=== PATIENT | female | born 2000 | race Caucasian/White ===

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

== ENCOUNTER 2020-07-28 19:54 | Emergency (ER) | payer OTHER ==
[~2020-07-28] VITALS: Ht 162.6 cm; Wt 64.4 kg
[2020-07-28 20:00] VITALS: BP 129/90
--- NOTE | 2020-07-28 20:00 | NUR ---
TO BED AMBULATORY
--- NOTE | 2020-07-28 20:15 | NUR ---
20 Y/O FEMALE PRESENTS TO ER WITH C/O VOMITING X 3HRS. 6/10 PAIN "PRESSURE IN FOREHEAD" ONLY. ALSO C/O OF SORE THROAT. DENIES EATING ANYTHING OUT OF THE ORDINARY, DENIES INJURY, NAUSEA, DIARRHEA, FEVER, SOB, COUGH. DENIES ANY KNOWN EXPOSURE TO COVID, OR SICK HOUSEHOLD MEMBERS. VSS, R/R EQUAL, AND UNLABORED. LMP: 07/27/20. PT STATES " I HAVE YEARLY VOMITING EPISODES". STATES LAST VOMIT HERE IN ER BATHROOM AT 2020. SIDE RAIL X1, BED IN LOW POSITION, WILL CONTINUE TO MONITOR. NKDA ALLERGIC: COCKROACHES PMH: COLLAGEN VASCULAR DISEASE
[2020-07-28] MEDS ORDERED: ONDANSETRON 4 MG/2 ML VIAL IVP ONE (20:55)
[2020-07-28 21:28] LABS: ALBUMIN 4.4 g/dL (3.4-5.0); ANION GAP 13.9 (8-16); BASOPHILS % (AUTO) 0.2 % (0.0-2.0); CARBON DIOXIDE 24.9 mmol/L (21-32); CREATININE 0.8 mg/dL (0.6-1.3); EOSINOPHILS % (AUTO) 0.1 % (0.0-4.0); HEMATOCRIT 37.3 % (36-48); HEMOGLOBIN 12.5 g/dL (12.0-16.0); LYMPHOCYTES # (AUTO) 1.4 K/uL (2.5-16.5); LYMPHOCYTES % (AUTO) 11.5 % (20.5-51.1); MEAN CORPUSCULAR HEMOGLOBIN 29 pg (27-31); MEAN CORPUSCULAR HGB CONC 34 g/dL (33-37); MEAN CORPUSCULAR VOLUME 87.4 fL (80-94); MONOCYTES # (AUTO) 0.4 K/uL (0.8-1.0); NEUTROPHILS # (AUTO) 10.4 K/uL (1.8-7.7); NEUTROPHILS % (AUTO) 85.2 % (42.2-75.2); PLATELET COUNT (AUTO) 274 K/uL (140-450); POTASSIUM 3.8 mmol/L (3.5-5.1); RED BLOOD CELL COUNT(AUTO) 4.27 MIL/uL (4.20-5.40); RED CELL DISTRIBUTION WIDTH 13.6 % (11.6-13.7); TOTAL BILIRUBIN 0.7 mg/dL (0.0-1.0); WHITE BLOOD COUNT (AUTO) 12.2 K/uL (4.5-11.0)
[2020-07-28] MEDS ORDERED: ONDA4ODT2 PO (21:40)
--- NOTE | 2020-07-28 21:40 | NUR ---
PO CHALLENGE STARTED. PT GIVEN APPLE JUICE
--- NOTE | 2020-07-28 21:57 | NUR ---
PO CHALLENGE COMPLETE. PT STATES SHE FEELS "OK". DOESN'T FEEL THE URGE TO VOMIT.
[2020-07-28 22:07] VITALS: BP 129/90
== END 2020-07-28 22:00 | disposition home or self-care (01) ==
LOC: MED 19:54
DX: R11.2 Nausea with vomiting, unspecified (principal); E86.0 Dehydration
CPT/HCPCS: 36415; 80053; 81002; 81025; 83690; 85025; 96374; 99283; J2405

== ENCOUNTER 2020-07-28 22:37 | Emergency (ER) | payer OTHER ==
[~2020-07-28] VITALS: Ht 162.6 cm; Wt 64.4 kg
[~2020-07-28 22:37] MED LIST: ONDA4ODT2 PO
[2020-07-28 22:43] VITALS: BP 155/85
--- NOTE | 2020-07-28 22:43 | NUR ---
TO BED VIA WHEELCHAIR
--- NOTE | 2020-07-28 23:16 | NUR ---
PATIENT 20 Y.O. BIB SELF FOR C/O CONTINUED NAUSEA AND VOMITING. A&OX4. PATIENT REPORTS "I WAS JUST HERE, BUT MY MEDICATION WASN'T FILLED AND IM STILL NAUSEOUS AND VOMITING." BOWEL SOUNDS ACTIVE X 4 QUADRATS. LAST BM 07/28/20. ABDOMEN IS FLAT, SOFT, NONTENDER. SEE COMPLETE ASSESSMENT FOR FURTHER DETAILS. MED HX: DENIES ALLERGIES: NKA
--- NOTE | 2020-07-28 23:20 | NUR ---
ERMD AT BEDSIDE ASSESSING PATIENT.
[2020-07-28] MEDS ORDERED: PROCHLORPERAZINE 10 MG/2 ML VIAL IVP ONE (23:25)
[2020-07-28] MEDS ORDERED: diphenhydrAMINE 50 MG/ML VIAL IVP ONE (23:25)
[2020-07-28] MEDS ORDERED: KETOROLAC 15 MG/ML VIAL IVP ONE (23:25)
[2020-07-28] MEDS ORDERED: NACL 0.9% 1,000 ML IV ONE (23:25)
[2020-07-29 00:59] VITALS: BP 124/81
--- NOTE | 2020-07-29 00:59 | NUR ---
Patient discharged with v/s stable. Written and verbal after care instructions given and explained. Patient verbalized understanding. Ambulatory with steady gait. All questions addressed prior to discharge. Advised to follow up with PMD.
== END 2020-07-29 00:59 | disposition home or self-care (01) ==
LOC: MED 22:37
DX: R11.2 Nausea with vomiting, unspecified (principal); E86.0 Dehydration; R51.9 Headache, unspecified; Z79.899 Other long term (current) drug therapy
CPT/HCPCS: 96361; 96374; 96375; 99284; J0780; J1200; J1885; J7030

== ENCOUNTER 2021-09-23 18:37 | Emergency (ER) | payer OTHER ==
[~2021-09-23] VITALS: Ht 160 cm; Wt 67.6 kg
[2021-09-23 18:41] VITALS: BP 133/87
--- NOTE | 2021-09-23 19:36 | NUR ---
PT IN RR FOR URINE COLLECTION.
--- NOTE | 2021-09-23 19:37 | NUR ---
URINE COLLECTED. PT IS HAVING LABS DRAWN.
--- NOTE | 2021-09-23 19:42 | NUR ---
PT BACK IN LOBBY.
[2021-09-23 19:52] LABS: BASOPHILS % (AUTO) 0.2 % (0.0-2.0); EOSINOPHILS % (AUTO) 0.1 % (0.0-4.0); HEMATOCRIT 38.7 % (36-48); HEMOGLOBIN 12.9 g/dL (12.0-16.0); LYMPHOCYTES # (AUTO) 1.5 K/uL (2.5-16.5); LYMPHOCYTES % (AUTO) 11.9 % (20.5-51.1); MEAN CORPUSCULAR HEMOGLOBIN 29 pg (27-31); MEAN CORPUSCULAR HGB CONC 33 g/dL (33-37); MEAN CORPUSCULAR VOLUME 86.9 fL (80-94); MONOCYTES # (AUTO) 0.5 K/uL (0.8-1.0); NEUTROPHILS # (AUTO) 10.4 K/uL (1.8-7.7); NEUTROPHILS % (AUTO) 83.8 % (42.2-75.2); PLATELET COUNT (AUTO) 305 K/uL (140-450); RED BLOOD CELL COUNT(AUTO) 4.45 MIL/uL (4.20-5.40); RED CELL DISTRIBUTION WIDTH 13.1 % (11.6-13.7); WHITE BLOOD COUNT (AUTO) 12.4 K/uL (4.8-10.8)
[2021-09-23 20:06] LABS: ANION GAP 11.9 (8-16); CARBON DIOXIDE 27.4 mmol/L (21-32); CREATININE 0.7 mg/dL (0.6-1.3); POTASSIUM 4.3 mmol/L (3.5-5.1)
[2021-09-23 20:13] LABS: ALBUMIN 4.1 g/dL (3.4-5.0); TOTAL BILIRUBIN 0.5 mg/dL (0.0-1.0)
--- NOTE | 2021-09-23 21:13 | NUR ---
TO BED 11 AMBULATORY.
[2021-09-23 22:02] VITALS: BP 117/80
--- NOTE | 2021-09-23 22:03 | NUR ---
pt reports ongoing nausea, no vomiting at this time, ongoing headache 8/10 pressure to temporal non rad constant since 1400 today. pt denies any cough, fevers/chills, abdominal pain. ermd made aware. pmh: denies allergies:denies
[2021-09-23] MEDS ORDERED: METOCLOPRAMIDE 10 MG/2 ML INJ VIAL IM ONE (22:10)
[2021-09-23] MEDS ORDERED: METO-486 PO (22:46)
[2021-09-23] MEDS ORDERED: ALUMINUM HYD/MAG/SIMETHICONE 30 ML UDC PO ONE (22:55)
--- NOTE | 2021-09-23 23:18 | NUR ---
Pt report given to [facility]. Transfer of care at this time.
--- NOTE | 2021-09-23 23:26 | NUR ---
RECEIVED REPORT FROM [facility] [employer] REPRESENTATIVE NURSE FOR CONTINUITY OF CARE, ROUNDS DONE PT IN BED ASLEEP, WILL RECHECK IN 10 MINUTES FOR PO CHALLENGE.
--- NOTE | 2021-09-23 23:54 | NUR ---
GAVE SMALL APPLE JUICE FOR THE PO CHALLENGE. WILL MONITOR.
--- NOTE | 2021-09-24 00:43 | NUR ---
PT PASSES PO CHALLENGE. PT DISCAHRGED TO HOME WITH SCRIPTS SENT TO PHARMACY. PT VERBELIZED UNDERSTANSDING OF D/C INSTRUCTIONS. PT AMBULATED OUT OF THE LOBBY IN A STEADY GAIT NO C/O VOICED AT THIS TIME.
== END 2021-09-24 00:43 | disposition home or self-care (01) ==
LOC: MED 18:37
DX: R51.9 Headache, unspecified (principal); R11.2 Nausea with vomiting, unspecified; H53.149 Visual discomfort, unspecified; Z79.899 Other long term (current) drug therapy; Z98.890 Other specified postprocedural states
CPT/HCPCS: 36415; 80053; 81002; 81025; 83690; 85025; 96372; 99283; J2765